=== PATIENT | female | born 1950 | race Caucasian/White ===

== ENCOUNTER 2019-05-18 12:48 | Outpatient (RCR) | payer MEDICARE, SELFPAY | END 2019-05-18 12:55 | disposition home or self-care (01) | LOC: PT 12:48 | PROVIDERS: Visit Provider Thoracic Surgery (Cardiothoracic Vascular Surgery) | DX: Z95.1 Presence of aortocoronary bypass graft (principal) | CPT/HCPCS: 93798 ==

== ENCOUNTER 2021-02-07 12:01 | Observation (INO) | payer MEDICARE, SELFPAY ==
[2021-02-07] VITALS (18 sets, daily range): BP systolic 97–131; BP diastolic 51–93; PULSE 82–141; RESP 15–23; TEMP 36.6–36.9; O2SAT 94–98; BMI 35.2; BMI 29.9
--- NOTE | 2021-02-07 12:03 | ECG_ITS ---
APPROVED REPORT Exam: Resting ECG HR:127 bpm ECG Measurements Heart Rate 127 AXES QRSd 96 QRS -14 QT 334 T 46 QTc 485 Conclusion Atrial fibrillation with rapid ventricular response with premature ventricular or aberrantly conducted complexes Low voltage QRS Incomplete right bundle branch block Nonspecific ST abnormality, probably digitalis effect Abnormal ECG Electronically signed by : Scottie Barnett, 02/09/2021 15:58:55
--- NOTE | 2021-02-07 12:15 | HMH.EDGENADL ---
ED Disposition Clinical Impression: Atrial fibrillation with RVR Syncope Qualifiers: Syncope type: unspecified Qualified Code(s): R55 - Syncope and collapse Disposition: Admitted as Observation Condition on Discharge: Good Referrals: Omar Galvin [Primary Care Provider] - Time of Disposition: 17:00 - Critical Care Critical Care Time: No Attestation: On 02/07/21, the high probability of a clinically significant, sudden or life threatening deterioration of the following system(s) required my full and direct attention, intervention and personal management. The time I documented below is in addition to time spent performing reported procedures but includes the following listed in this critical care notation. Medical Decision Making - Medical Records Medical records reviewed: Yes: I reviewed the patient's medical records. - Smith Inquiry Pt receiving controlled substance: No Vital Signs: 02/07/21 12:02 02/07/21 12:30 02/07/21 13:18 Temperature 98.4 F 98.2 F Temperature Source Oral Oral Pulse Rate 127 H 117 H Pulse Rate [Right] 118 H Respiratory Rate 18 18 18 Blood Pressure 128/74 131/93 H Blood Pressure [Right Arm] 117/69 Blood Pressure Mean [Right Arm] 85 02 Sat by Pulse Oximetry 95 97 97 Oxygen Delivery Method Room Air Room Air 02/07/21 13:45 02/07/21 13:56 02/07/21 14:01 Temperature Temperature Source Pulse Rate 141 H 133 H 128 H Pulse Rate [Right] Respiratory Rate 18 17 Blood Pressure 125/74 125/74 119/86 Blood Pressure [Right Arm] Blood Pressure Mean [Right Arm] 02 Sat by Pulse Oximetry 96 96 94 L Oxygen Delivery Method Room Air 02/07/21 14:27 02/07/21 14:30 02/07/21 15:00 Temperature Temperature Source Pulse Rate 98 H 82 88 Pulse Rate [Right] Respiratory Rate 18 19 20 Blood Pressure 119/71 100/58 L 108/63 L Blood Pressure [Right Arm] Blood Pressure Mean [Right Arm] 02 Sat by Pulse Oximetry 98 96 96 Oxygen Delivery Method Room Air 02/07/21 15:10 02/07/21 15:15 02/07/21 16:00 Temperature Temperature Source Pulse Rate 93 H 96 H 105 H Pulse Rate [Right] Respiratory Rate 16 23 19 Blood Pressure 108/63 L 112/65 97/68 L Blood Pressure [Right Arm] Blood Pressure Mean [Right Arm] 02 Sat by Pulse Oximetry 97 97 98 Oxygen Delivery Method Room Air 02/07/21 16:44 Temperature Temperature Source Pulse Rate 96 H Pulse Rate [Right] Respiratory Rate 15 Blood Pressure 117/78 Blood Pressure [Right Arm] Blood Pressure Mean [Right Arm] 02 Sat by Pulse Oximetry 97 Oxygen Delivery Method - Lab Data Lab results reviewed: Yes: I reviewed the patient's lab results. Lab Results 02/07/21 12:00: WBC 4.2 L, RBC 3.45 L, Hgb 10.5 L, Hct 31.0 L, MCV 89.9, MCH 30.3, MCHC 33.8, RDW 13.6, Plt Count 230, MPV 7.6, Neut % (Auto) 51.7, Lymph % (Auto) 32.2, [place] % (Auto) 8.4, Eos % (Auto) 6.8, Baso % (Auto) 1.1, Neut # (Auto) 2.2, Lymph # (Auto) 1.3, [place] # (Auto) 0.4, Eos # (Auto) 0.3, Baso # (Auto) 0.1 02/07/21 12:00: Sodium 135 L, Potassium 3.6, Chloride 98, Carbon Dioxide 32 H, Anion Gap 8.6, BUN 13, Creatinine 0.60, Estimated Creat Clear 67, Estimated GFR 99, Est GFR ( Amer) 119, Glucose 102 H, Calcium 9.3, Total Bilirubin 0.7, AST 28, ALT 13, Alkaline Phosphatase 106, Troponin I < 0.01, Total Protein 6.8, Albumin 4.1, Globulin 2.7, Albumin/Globulin Ratio 1.5 02/07/21 13:07: Urine Color Yellow, Urine Appearance Clear, Urine pH 5.5, Ur Specific [place] 1.015, Urine Protein Negative, Urine Glucose (UA) Negative, Urine Ketones Negative, Urine Blood Negative, Urine Nitrate Negative, Urine Bilirubin Negative, Urine Urobilinogen 0.2, Ur Leukocyte Esterase Negative, Urine RBC None, Urine WBC None, Ur Squamous Epith Cells Occasional, Urine Bacteria None 02/07/21 15:25: Troponin I < 0.01 02/07/21 15:27: SARS-CoV-2 (PCR) Not detected, Influenza A Untype (PCR) Not detected, Influenza Type B (PCR) Not detected Result diagrams: 02/07/
--- NOTE | 2021-02-07 12:18 | XR_ITS ---
PROCEDURE: XR CHEST PORTABLE CLINICAL HISTORY: Afib with palpations COMPARISON: No exams were available for comparison FINDINGS: There is mild hyperexpansion of lung ferreira. There is slightly accentuated bronchovascular markings in the left suprahilar region which could rib present postinflammatory scarring although a minimal infiltrate or atelectasis is a possibility. I somewhat favor minimal scarring. There is borderline cardiomegaly and there are sternal wire sutures. There is an apparent prosthetic aortic valve in place. There is no pulmonary congestion and there is no pleural fluid. There monitor lines overlying the chest. IMPRESSION: Mild to moderate COPD, no acute cardiopulmonary disease seen Dictated by: Dr. Myke Rodriguez MD 02/07/2021 12:57 Dr. Myke Rodriguez MD in [place] 02/07/2021 12:57
[2021-02-07 12:25] LABS: Basophils # 0.1 K/mm3 (0-0.2); Basophils % 1.1 % (0.1-2.0); Eosinophils # 0.3 K/mm3 (0.0-0.4); Eosinophils % 6.8 % (0.1-12.0); Hemoglobin 10.5 g/dL (12.2-16.2); Lymphocytes # 1.3 K/mm3 (0.7-4.5); Lymphocytes % 32.2 % (10-50); Mean Corpuscular HGB Conc 33.8 g/dL (31.8-35.4); Mean Corpuscular Hemoglobin 30.3 pg (27.0-31.2); Mean Corpuscular Volume 89.9 fl (81-99); Mean Platelet Volume 7.6 fl (7.4-10.4); Monocytes # 0.4 K/mm3 (0.1-1.0); Monocytes % 8.4 % (1.7-9.3); Neutrophils # 2.2 K/mm3 (1.8-7.8); Neutrophils % 51.7 % (37.0-80.0); Platelet Count 230 K/mm3 (142-424); Red Blood Count 3.45 M/mm3 (4.20-5.40); Red Cell Distribution Width 13.6 % (11.5-17.5); White Blood Count 4.2 K/mm3 (4.8-10.8)
[2021-02-07 12:32] LABS: Alanine Aminotransferase 13 U/L (12-78); Albumin Level 4.1 g/dl (3.5-5.0); Albumin/Globulin Ratio 1.5 (1.1-1.8); Alkaline Phosphatase 106 U/L (38-126); Anion Gap 8.6 mEq/L (5-15); Aspartate Amino Transferase 28 U/L (14-36); Bilirubin,Total 0.7 mg/dl (0.2-1.3); Blood Urea Nitrogen 13 mg/dl (7-17); Calcium 9.3 mg/dl (8.4-10.2); Carbon Dioxide 32 mmol/L (22.0-30.0); Chloride 98 mmol/L (98-107); Creatinine Clearance Estimated 67 mL/min (50-200); Estimated Glomerular Filt Rate 99 ml/min (>60); GFR (African American) 119 ML/MIN (>60); Globulin 2.7 g/dL (1.3-3.2); Glucose 102 mg/dl (74-100); Potassium 3.6 mmoL/L (3.5-5.1); Sodium 135 mmol/L (136-145); Total Protein,Serum 6.8 g/dl (6.3-8.2)
[2021-02-07 12:44] LABS: Troponin I < 0.01 ng/ml (0.00-0.034)
--- NOTE | 2021-02-07 12:48 | CT_ITS ---
PROCEDURE: CT HEAD/BRAIN WO CON CLINICAL INDICATION: dizziness and nausea COMPARISON: No exams were available for comparison TECHNIQUE: Axial images obtained. All CT scans at the facility use one or more dose reduction, viz: automated exposure control, ma/kV adjustment per patient size (including targeted exams where dose is matched to indication, i.e. head), or iterative reconstruction technique. FINDINGS: No midline shift, mass effect, intracranial hemorrhage, hydrocephalus, or extra-axial fluid collection is evident. The sylvian fissures and cortical sulci mildly. There are no significant chronic ischemic changes. The calvarium has an unremarkable appearance. No mastoid effusion. The bilateral internal auditory canals appear normal. No sinus air-fluid level. IMPRESSION: No acute intracranial finding, findings of very mild age-appropriate cortical atrophy Dictated by: Dr. Myke Rodriguez MD 02/07/2021 13:59 Dr. Myke Rodriguez MD in [facility] 02/07/2021 13:59
[2021-02-07 13:11] LABS: Microscopic, Urine URINE MICROSCOPIC (MICROSCOPIC)
[2021-02-07 13:13] LABS: Appearance,Urine CLEAR (Clear); Bilirubin,Urine Negative (Negative); Blood, Urine Negative (Negative); Color,Urine YELLOW (Yellow); Glucose,Urine (UA) Negative (Negative); Ketones,Urine Negative (Negative); Leukocyte Esterase,Urine Negative (Negative); Nitrate,Urine Negative (Negative); PH,Urine 5.5 (5.0-8.5); Protein,Urine Negative (Negative); Specific Gravity, Urine 1.015 (1.005-1.030); Urobilinogen,Urine 0.2 EU/dl (0.2)
[2021-02-07 13:30] LABS: Squamous Epithelial Cell,Urine Occasional #/hpf (0-5)
--- NOTE | 2021-02-07 13:31 | PC.NURSE ---
pt to radiology at this time
--- NOTE | 2021-02-07 13:50 | PC.NURSE ---
pt returned from rad
--- NOTE | 2021-02-07 15:19 | ECG_ITS ---
APPROVED REPORT Exam: Resting ECG HR:97 bpm ECG Measurements Heart Rate 97 AXES QRSd 96 QRS -8 QT 374 T 51 QTc 474 Conclusion Atrial fibrillation Low voltage QRS Prolonged QT Abnormal ECG Electronically signed by : Scottie Barnett, 02/08/2021 18:05:16
[2021-02-07 15:31] LABS: Coronavirus 19, PCR Not Detected (NotDetected); Influenza A, PCR Not Detected (NotDetected); Influenza B, PCR Not Detected (NotDetected)
[2021-02-07 16:04] LABS: Troponin I < 0.01 ng/ml (0.00-0.034)
--- NOTE | 2021-02-07 17:05 | PC.NURSE ---
Called cafeteria for food tray for patient per ER physician verbal order
--- NOTE | 2021-02-07 17:16 | HMH.HP ---
*Admission Date: 02/07/21 *Chief complaint: syncope *History of present illness: 70yo F brought to the emergency department by ambulance secondary to multiple syncopal events. Patient reports she is unable to sit up without passing out. This just began this morning. She denies any previous episode. She denies any chest pain, shortness of breath. She denies any nausea or vomiting. She denies any recent illness. She denies any new medications. She endorses some spinning sensation when her eyes are open and she sitting up. No history of vertigo, stroke. (above as per ER physician) The patient was evaluated in the emergency room and found to be in atrial fib with rapid ventricular response. Her HR was in the 150's. She was given IV Cardizem and immediately her heart rate slowed. She states she had one episode of atrial fib when she had open heart surgery back in 2019. She is followed by a allocation analyst at [facility]. Her family physician was Dr. Galvin. He has left his practice and she is now going to be seeing a nurse practitioner. She will be admitted for monitoring on telemetry. [facility] History I have reviewed the patient's past medical history: Yes Medical History: Reports:: Chronic Obstructive Pulmonary Disease (COPD), Coronary Artery Disease, Gastroesophageal Reflux Disease(GERD) *Have you ever received a pneumonia vaccine?: Yes *Have you received a flu vaccine this season?: Yes Laterality Cases: Bilateral: Total Knee Replacement Other Surgeries: Yes: CABG, Cholecystectomy, Colonoscopy, Tubal Ligation Comment: right eye bx, hammer toe, dental - *Social History Smoking Status: Never smoker Alcohol Intake: never *Occupational Status:: retired *Travel in the last 8 weeks: None Family Hx:: Heart Attack, Other (copd) Review of Systems - Constitutional Reports weakness, Denies chills, Denies fever(s) - Eyes Denies blurry vision, Denies double vision - ENT Reports nasal congestion, Denies sore throat - *Cardiovascular Denies chest pain, Denies shortness of breath, Denies rapid, pounding, or irregular heartbeat - *Respiratory Denies chest congestion, Denies cough, Denies shortness of breath - *Gastrointestinal Reports nausea, Denies abdominal pain, Denies loose stools, Denies vomiting - *Genitourinary Denies difficulty urinating, Denies painful urination - *Musculoskeletal Denies joint pain - *Neurologic Reports fainting, Reports dizziness, Reports weakness, Denies headache(s) Meds Home Medications Medication Instructions Recorded Confirmed Type Budesonide 1 inh INHALATION NEEDED PRN 02/07/21 02/07/21 History Furosemide [Lasix 40mg tablet] 40 mg PO DIRECTED 02/07/21 02/07/21 History Ipratropium/Albuterol Sulfate 1 inh INHALATION NEEDED PRN 02/07/21 02/07/21 History [Duoneb 3mL neb] Levocetirizine Dihydrochloride 5 mg PO DAILY 02/07/21 02/07/21 History Montelukast Sodium [Singulair] 5 mg PO DAILY 02/07/21 02/07/21 History Pantoprazole Sodium 40 mg PO DAILY 02/07/21 02/07/21 History Revefenacin [Yupelri] 1 neb INHALATION DAILY 02/07/21 02/07/21 History Trazodone HCl 150 mg PO DAILY 02/07/21 02/07/21 History Venlafaxine HCl [Venlafaxine HCl 150 mg PO DAILY 02/07/21 02/07/21 History ER] Allergies Allergy/AdvReac Type Severity Reaction Status Date / Time No Known Allergies Allergy Verified 02/07/21 12:18 Exam Vital signs and Labs for Last 24 Hours: Temp Pulse Resp BP Pulse Ox 98.2 F 96 H 15 117/78 97 02/07/21 13:18 02/07/21 16:44 02/07/21 16:44 02/07/21 16:44 02/07/21 16:44 Laboratory Results - last 24 hr 02/07/21 12:00: WBC 4.2 L, RBC 3.45 L, Hgb 10.5 L, Hct 31.0 L, MCV 89.9, MCH 30.3, MCHC 33.8, RDW 13.6, Plt Count 230, MPV 7.6, Neut % (Auto) 51.7, Lymph % (Auto) 32.2, [place] % (Auto) 8.4, Eos % (Auto) 6.8, Baso % (Auto) 1.1, Neut # (Auto) 2.2, Lymph # (Auto) 1.3, [place] # (Auto) 0.4, Eos # (Auto) 0.3, Baso # (Auto) 0.1 02/07/21 12:00: Sodium 135 L, [place]
--- NOTE | 2021-02-07 18:13 | PC.NURSE ---
ATTEMPTED TO CALL REPORT TO 2ND FLOOR ABOUT PATIENT TWICE WITHOUT PHONE CALL BACK. 2ND FLOOR SPICE MIXER MADE AWARE TO HAVE FLOOR NURSE CALL BACK FOR REPORT
--- NOTE | 2021-02-07 18:45 | PC.NURSE ---
Contacted Miah for consult on this pt.
[2021-02-07 19:18] LABS: Troponin I < 0.01 ng/ml (0.00-0.034)
--- NOTE | 2021-02-07 20:18 | HMH.ACPN2 ---
Internal Medicine - PN: Subj *Date: 02/07/21 *Time: 20:18 Interval history: 70-year-old white female with prosthetic aortic valve presented with atrial fibrillation with rapid ventricular response. She responded in the emergency room to IV diltiazem. She states that there have been problems with her aortic valve. She also states that she has been under evaluation for hyperthyroidism. She has had some episodes of syncope. Exam Vital signs and Labs for Last 24 Hours: Temp Pulse Resp BP Pulse Ox 97.8 F 113 H 16 108/51 L 94 L 02/07/21 18:20 02/07/21 18:20 02/07/21 18:20 02/07/21 18:20 02/07/21 18:10 Laboratory Results - last 24 hr 02/07/21 12:00: WBC 4.2 L, RBC 3.45 L, Hgb 10.5 L, Hct 31.0 L, MCV 89.9, MCH 30.3, MCHC 33.8, RDW 13.6, Plt Count 230, MPV 7.6, Neut % (Auto) 51.7, Lymph % (Auto) 32.2, [place] % (Auto) 8.4, Eos % (Auto) 6.8, Baso % (Auto) 1.1, Neut # (Auto) 2.2, Lymph # (Auto) 1.3, [place] # (Auto) 0.4, Eos # (Auto) 0.3, Baso # (Auto) 0.1 02/07/21 12:00: Sodium 135 L, Potassium 3.6, Chloride 98, Carbon Dioxide 32 H, Anion Gap 8.6, BUN 13, Creatinine 0.60, Estimated Creat Clear 67, Estimated GFR 99, Est GFR ( Amer) 119, Glucose 102 H, Calcium 9.3, Total Bilirubin 0.7, AST 28, ALT 13, Alkaline Phosphatase 106, Troponin I < 0.01, Total Protein 6.8, Albumin 4.1, Globulin 2.7, Albumin/Globulin Ratio 1.5 02/07/21 13:07: Urine Color Yellow, Urine Appearance Clear, Urine pH 5.5, Ur Specific [place] 1.015, Urine Protein Negative, Urine Glucose (UA) Negative, Urine Ketones Negative, Urine Blood Negative, Urine Nitrate Negative, Urine Bilirubin Negative, Urine Urobilinogen 0.2, Ur Leukocyte Esterase Negative, Urine RBC None, Urine WBC None, Ur Squamous Epith Cells Occasional, Urine Bacteria None 02/07/21 15:25: Troponin I < 0.01 02/07/21 15:27: SARS-CoV-2 (PCR) Not detected, Influenza A Untype (PCR) Not detected, Influenza Type B (PCR) Not detected 02/07/21 18:15: Troponin I < 0.01 I & O for Last 24 hours: Intake & Output 02/05/21 02/06/21 02/07/21 02/08/21 11:59 11:59 11:59 11:59 Output Total 1000 / 1000 Balance -1000 / -1000 Weight 180 lb - Constitutional mild distress (She seems anxious and short of breath.) - *Routine HEENT Exam Head: Present: normocephalic Eye: Present: PERRL ENT: Present: mucous membranes moist - *Routine Neck Exam Present: JVD (Some) - Routine Chest/Breast/Axilla Exam Chest wall: Absent: tenderness Breast: Present: scars - *Routine Respiratory Exam Present: decreased breath sounds, wheezes - *Routine Cardiovascular Exam Present: irregular rhythm (100) - *Routine Abdominal Exam Present: soft. Absent: tenderness - *Routine Extremities Exam Absent: edema - *Routine Neurological Exam Present: alert (Pleasant but somewhat anxious.) Assessment and Plan (1) Atrial fibrillation with rapid ventricular response Status: Acute Category: Medical Code(s): I48.91 - Unspecified atrial fibrillation (2) Aortic valve prosthesis present Status: Acute Category: Surgical Code(s): Z95.2 - Presence of prosthetic heart valve (3) Syncope Status: Acute Category: Medical Code(s): R55 - Syncope and collapse (4) Thyroid disease Status: Acute Category: Medical Code(s): E07.9 - Disorder of thyroid, unspecified (5) COPD (chronic obstructive pulmonary disease) Status: Chronic Category: Medical Code(s): J44.9 - Chronic obstructive pulmonary disease, unspecified (6) Coronary artery disease Status: Chronic Category: Medical Code(s): I25.10 - Atherosclerotic heart disease of [place] coronary artery without angina pectoris - Assessment and plan all Dx Assessment and Plan for all problems:: Oxazepam 10 mg 3 times daily, coroner technician, observe for heart failure, TSH ordered, echocardiogram ordered, potassium 10 mEq 3 times daily
[2021-02-07 20:34] LABS: Thyroid Stimulating Hormone < 0.02 uIU/mL (0.465-4.68)
[2021-02-08] VITALS (17 sets, daily range): BP systolic 102–140; BP diastolic 54–89; PULSE 70–130; RESP 13–30; TEMP 36.6–36.8; O2SAT 90–98; BMI 30.2
--- NOTE | 2021-02-08 05:04 | PC.NURSE ---
patient has shown no s/s of acute distress noted this shift. Still tachycardic. Call light within reach, bed at lowest level for safety, will continue to monitor.
--- NOTE | 2021-02-08 06:15 | PC.NURSE ---
Josefina CAZARES NOTIFIED OF CONSULT.
[2021-02-08 06:36] LABS: Basophils % 0.7 % (0.1-2.0); Eosinophils # 0.4 K/mm3 (0.0-0.4); Eosinophils % 6.6 % (0.1-12.0); Hematocrit 33.1 % (37.0-47.0); Hemoglobin 10.9 g/dL (12.2-16.2); Lymphocytes # 2.8 K/mm3 (0.7-4.5); Lymphocytes % 41.5 % (10-50); Mean Corpuscular HGB Conc 32.9 g/dL (31.8-35.4); Mean Corpuscular Hemoglobin 30.2 pg (27.0-31.2); Mean Corpuscular Volume 91.9 fl (81-99); Mean Platelet Volume 7.6 fl (7.4-10.4); Monocytes # 0.5 K/mm3 (0.1-1.0); Neutrophils # 2.9 K/mm3 (1.8-7.8); Neutrophils % 44.2 % (37.0-80.0); Platelet Count 236 K/mm3 (142-424); Red Cell Distribution Width 13.5 % (11.5-17.5); White Blood Count 6.6 K/mm3 (4.8-10.8)
[2021-02-08 06:38] LABS: Chloride 102 mmol/L (98-107); Potassium 4.2 mmoL/L (3.5-5.1); Sodium 140 mmol/L (136-145)
[2021-02-08 06:40] LABS: Blood Urea Nitrogen 10 mg/dl (7-17); Creatinine Clearance Estimated 67 mL/min (50-200); Estimated Glomerular Filt Rate 99 ml/min (>60); GFR (African American) 119 ML/MIN (>60)
[2021-02-08 06:41] LABS: Anion Gap 10.2 mEq/L (5-15); Calcium 9.6 mg/dl (8.4-10.2); Carbon Dioxide 32 mmol/L (22.0-30.0); Glucose 98 mg/dl (74-100)
--- NOTE | 2021-02-08 07:25 | P.PN_ITS ---
Internal Medicine - PN: Subj *Date: 02/08/21 *Time: 07:25 Interval history: Remains in A. fib with HR>100. TSH<0.02 indicating hyperthyroidism. Exam Vital signs and Labs for Last 24 Hours: Temp Pulse Resp BP Pulse Ox 97.9 F 80 18 119/74 96 02/08/21 00:00 02/08/21 04:00 02/08/21 00:00 02/08/21 00:00 02/08/21 00:00 Laboratory Results - last 24 hr 02/07/21 12:00: WBC 4.2 L, RBC 3.45 L, Hgb 10.5 L, Hct 31.0 L, MCV 89.9, MCH 30.3, MCHC 33.8, RDW 13.6, Plt Count 230, MPV 7.6, Neut % (Auto) 51.7, Lymph % (Auto) 32.2, [place] % (Auto) 8.4, Eos % (Auto) 6.8, Baso % (Auto) 1.1, Neut # (Auto) 2.2, Lymph # (Auto) 1.3, [place] # (Auto) 0.4, Eos # (Auto) 0.3, Baso # (Auto) 0.1 02/07/21 12:00: Sodium 135 L, Potassium 3.6, Chloride 98, Carbon Dioxide 32 H, Anion Gap 8.6, BUN 13, Creatinine 0.60, Estimated Creat Clear 67, Estimated GFR 99, Est GFR ( Amer) 119, Glucose 102 H, Calcium 9.3, Total Bilirubin 0.7, AST 28, ALT 13, Alkaline Phosphatase 106, Troponin I < 0.01, Total Protein 6.8, Albumin 4.1, Globulin 2.7, Albumin/Globulin Ratio 1.5 02/07/21 13:07: Urine Color Yellow, Urine Appearance Clear, Urine pH 5.5, Ur Specific [place] 1.015, Urine Protein Negative, Urine Glucose (UA) Negative, Urine Ketones Negative, Urine Blood Negative, Urine Nitrate Negative, Urine Bilirubin Negative, Urine Urobilinogen 0.2, Ur Leukocyte Esterase Negative, Urine RBC None, Urine WBC None, Ur Squamous Epith Cells Occasional, Urine Bact eria None 02/07/21 15:25: Troponin I < 0.01 02/07/21 15:25: TSH < 0.02 L 02/07/21 15:27: SARS-CoV-2 (PCR) Not detected, Influenza A Untype (PCR) Not d etected, Influenza Type B (PCR) Not detected 02/07/21 18:15: Troponin I < 0.01 02/08/21 06:10: WBC 6.6 D, RBC 3.60 L, Hgb 10.9 L, Hct 33.1 L, MCV 91.9, MCH 30.2, MCHC 32.9, RDW 13.5, Plt Count 236, MPV 7.6, Neut % (Auto) 44.2, Lymph % (Auto) 41.5, [place] % (Auto) 7.0, Eos % (Auto) 6.6, Baso % (Auto) 0.7, Neut # (Auto) 2.9, Lymph # (Auto) 2.8, [place] # (Auto) 0.5, Eos # (Auto) 0.4, Baso # (Auto) 0.0 02/08/21 06:10: Sodium 140, Potassium 4.2, Chloride 102, Carbon Dioxide 32 H, Anion Gap 10.2, BUN 10, Creatinine 0.60, Estimated Creat Clear 67, Estimated GFR 99, Est GFR ( Amer) 119, Glucose 98, Calcium 9.6 I & O for Last 24 hours: Intake & Output 02/05/21 02/06/21 02/07/21 02/08/21 11:59 11:59 11:59 11:59 Output Total 1500 / 1500 Balance -1500 / -1500 Weight 181 lb 2 oz Assessment and Plan (1) Atrial fibrillation with rapid ventricular response Status: Acute Category: Medical Code(s): I48.91 - Unspecified atrial fibrillation (2) Aortic valve prosthesis present Status: Acute Category: Surgical Code(s): Z95.2 - Presence of prosthetic heart valve (3) Syncope Status: Acute Category: Medical Code(s): R55 - Syncope and collapse (4) Hyperthyroidism Status: Acute Category: Medical Code(s): E05.90 - Thyrotoxicosis, unspecified without thyrotoxic crisis or storm (5) COPD (chronic obstructive pulmonary disease) Status: Chronic Category: Medical Code(s): J44.9 - Chronic obstructive pulmonary disease, unspecified (6) Coronary artery disease Status: Chronic Category: Medical Code(s): I25.10 - Atherosclerotic heart disease of [place] coronary artery without angina pectoris - Assessment and plan all Dx Assessment and Plan for all problems:: Thyroid autoantibodies test. Methimazole 5mg daily.
--- NOTE | 2021-02-08 07:31 | US_ITS ---
PROCEDURE: US THYROID CLINICAL INDICATION: hyperthyroidism COMPARISON: No exams were available for comparison FINDINGS: Right lobe: 2.3cm x 4.1cm x 2.1cm Left lobe: 2.1cm x 3.7cm x 1.9cm Isthmus: Thickened at 7 mm Additional findings: There is diffuse heterogeneous echogenicity of both lobes. There is a small 3 mm cyst in the upper pole on the. In the mid polar region on the left there is a a mostly solid nodule 9 x 6 mm with a small central cystic area wider than tall. No obvious calcifications. Well-circumscribed isoechoic to slightly hypoechoic. T rads level 3 less than 2.5 cm IMPRESSION: 9 x 6 mm T rads level 3 nodule on the left. Suggest 12 month follow-up Diffuse heterogeneous echogenicity of the thyroid gland. Dictated by: Gerald Glover MD 02/09/2021 04:49 Gerald Glover MD in [place] 02/09/2021 04:49
--- NOTE | 2021-02-08 08:00 | PC.NURSE ---
Instructed pt that home meds were needed, she stated she would have her bring them in.
--- NOTE | 2021-02-08 08:00 | CA_ITS ---
APPROVED REPORT EXAM: Comprehensive 2D, Doppler, and color-flow Echocardiogram Rotary Derrick Operator: Haylie Godoy CRT Ht: 5 ft 5 in Wt: 180lbs BSA: 1.89 BP: 117/78 mmHg Indications: Atrial Fibrillation, Syncope, CABG 2019, GERD, AVR replaced 2019 bovine valve, pt states valve is too small and needs surgically replaced 2D Dimensions LVOT 1.52 cm (M/F) 1.5-2.5 LA Volume 43.80 mL LA Volume Index 23.20 mL/m2 (M/F) 16-34 M-Mode Dimensions RVDd 2.57 cm (0.9-2.6) LA Diam 5.21 cm (1.9-4.0) LVDd 5.03 cm (3.5-5.7) Ao Diam 3.51 cm (2.0-3.7) LVDs 3.64 cm (3.5-5.7) IVSd 1.25 cm (0.6-1.1) PWd 0.82 cm (0.6-1.1) EF (Teich) 53.40% FS 27.60% EDV (Teich) 119.90 mL TAPSE 1.45 (<1.7) ESV (Teich) 55.90 mL LV Diastology E Decel Time 150.00 (160-240 msec) E/A Ratio 4.06 Aortic Valve LVOT Max 350.00 (70-110 cm/s) LVOT VTI 59.20 cm AoV Peak Rahul. 293.00 (50-130 cm/s) AO Peak GR. 35.40 mmHg AO Mean GR. 16.40 (<5 mmHg) AO VTI 45.29 (18-25 cm) DEEAP (VTI) 2.37 (2.5-4.5 cm2) Mitral Valve MV E Max Rahul. 128.00 (40-130 cm/s) MV A Velocity 31.00 (40-130 cm/s) E/A Ratio 4.06 MV Decel. Time 150.00 (160-240 ms) MV PHT 44.00 ms Pulmonary Valve PV Peak Velocity 145.00 (50-150 cm/s) Tricuspid Valve TR P. Velocity 286.00 cm/s RAP Estimate 10.00 mmHg RVSP 42.70 mmHg Left Ventricle Difficult study, left atrium is moderately enlarged, left ventricle is normal size, visually estimated ejection fraction of 55% with no regional wall motion abnormality, there is abnormal septal motion. Diastolic parameters are inconclusive. Right Ventricle Right atrium is moderately enlarged, right ventricle is mildly dilated normal contractility. Aortic Valve There is bioprosthetic valve noted in the aortic position, leaflets are mobile, the maximum aortic outflow velocity is 3.4 m/s, resulting in a mean gradient across valve is 24 mmHg. Valve area is not accurately calculated, there is no aortic insufficiency. Mitral Valve Mitral valve leaflets are minimally thickened, there is moderate mitral regurgitation. Tricuspid Valve Tricuspid valve grossly normal, there is moderate tricuspid regurgitation, calculated right ventricular systolic pressure is 42 mmHg. Pulmonic Valve Pulmonic valve is poorly visualized. Great Vessels Aortic root is normal size, ascending aorta is mildly enlarged measuring 3.8 cm. Inferior vena cava is normal size with normal inspiratory collapse. Pericardium No significant pericardial effusion noted. Conclusion 1. Biatrial enlargement, normal left ventricular size, mild concentric left ventricular hypertrophy, visually estimated ejection fraction 55%, there is abnormal septal motion. Diastolic parameters are inconclusive. 2. Mildly enlarged right ventricle with normal contractility. 3. Bioprosthetic aortic valve with mean gradient across valve is 24 mmHg, there is no aortic insufficiency. 4. Moderate mitral and tricuspid regurgitation. Calculated right ventricular systolic pressure 42 mmHg 5. No significant pericardial effusion noted, inferior vena cava is normal size with normal inspiratory collapse. Electronically signed by : Akbar Dougherty, 02/08/2021 15:50:46
--- NOTE | 2021-02-08 08:04 | P.CONPHA_ITS ---
[facility] Pharmacy VTE Monitoring - Patient Demographics Admission date: 02/07/21 Report Date: 02/08/21 Time: 08:04 Allergies/Adverse Reactions: Patient Allergies No Known Allergies Allergy (Verified 02/07/21 12:18) Height: 1.65 m Weight: 82.157 kg Patient Problems: Current Active Problems Hyperthyroidism (Acute) Aortic valve prosthesis present (Acute) Atrial fibrillation with rapid ventricular response (Acute) Coronary artery disease (Chronic) COPD (chronic obstructive pulmonary disease) (Chronic) Syncope (Acute) - VTE Risk Labs: VTE Related Lab Results Hgb 10.9 g/dL (12.2-16.2) L 02/08/21 06:10 Hct 33.1 % (37.0-47.0) L 02/08/21 06:10 Plt Count 236 K/mm3 (142-424) 02/08/21 06:10 BUN 10 mg/dl (7-17) 02/08/21 06:10 Creatinine 0.60 mg/dl (0.52-1.04) 02/08/21 06:10 Estimated Creat Clear 67 mL/min (50-200) 02/08/21 06:10 Was VTE Risk Assessment Performed: Yes VTE Score: 3 VTE Risk Level: Low Risk - Prophylaxis VTE Prophylaxis Ordered?: Yes Types of VTE Prophylaxis: IPCS Thigh High, Pharmacological Location of Applied Device: Bilateral Lower Extremeties Pharmacologic Type: Other (XARELTO)
[2021-02-08 08:18] LABS: Triiodothryronine (T3) Uptake 42 % (23.5-40.5)
--- NOTE | 2021-02-08 08:18 | CT_ITS ---
PROCEDURE INFORMATION: Exam: CTA Chest With Contrast Exam date and time: 02/08/2021 8:18 AM Age: 70 years old Clinical indication: Shortness of breath; Prior surgery; Additional info: juan BANG TECHNIQUE: Imaging protocol: Computed tomographic angiography of the chest with contrast. 3D rendering (Not supervised by radiologist): MIP and/or 3D reconstructed images were created by the technologist. Radiation optimization: All CT scans at this facility use at least one of these dose optimization techniques: automated exposure control; mA and/or kV adjustment per patient size (includes targeted exams where dose is matched to clinical indication); or iterative reconstruction. Contrast material: ISOVUE 370; Contrast volume: 70 ml; Contrast route: INTRAVENOUS (IV); COMPARISON: CR XR CHEST PORTABLE 02/07/2021 12:34 PM FINDINGS: Pulmonary arteries: Normal. No pulmonary emboli. Aorta: Unremarkable. No aortic aneurysm. No aortic dissection. Lungs: There is biapical fibrosis. Pleural spaces: Unremarkable. No pneumothorax. No pleural effusion. Heart: Aortic valve prosthesis. Mediastinal space: There is a hiatal hernia. Lymph nodes: Unremarkable. No enlarged lymph nodes. Gallbladder and bile ducts: There has been a cholecystectomy. There is biliary ductal dilatation. Asymptomatic bile duct dilatation is considered normal after cholecystectomy. Pancreas: There is diffuse atrophy of the pancreatic parenchyma. Bones/joints: There are sternal wires consistent with previous sternotomy incision. Degenerative changes of the spine. Soft tissues: Unremarkable. IMPRESSION: No acute findings.
[2021-02-08 08:19] LABS: Free Thyroxine Index 5.7 ug/dL (5.93-13.13); T4 (Thyroxine) 13.6 ug/dl (5.53-11.0)
--- NOTE | 2021-02-08 08:25 | HMH.CNCARD ---
History of Present Illness Consult date: 02/08/21 Requesting physician: Kailyn Sheikh Consult reason: atrial fibrillation, shortness of breath Chief complaint: SOA Additional Medical History:: 1. Aortic valve disease A. Aortic valve replacement, 03/29/2019, Dr. Hardy, [facility]. B. Normal coronaries per records at time of AVR surgery. 2. COPD in a non-smoker 3. History of recurrent major depressive disorder 4. Hypothyroidism 5. Obstructive sleep apnea, reportedly mild 6. Anxiety 7. Hyperlipidemia 8. History of thrombocytosis 9. Paroxysmal atrial fibrillation 10. History of asthma 11 history of GERD 12. History of fibrocystic breast changes, bilaterally 13. History of hepatitis A History of present illness: 70yo F brought to the emergency department by ambulance secondary to multiple syncopal events. Patient reports she is unable to sit up without passing out. This just began this morning. She denies any previous episode. She denies any chest pain, shortness of breath. She denies any nausea or vomiting. She denies any recent illness. She denies any new medications. She endorses some spinning sensation when her eyes are open and she sitting up. No history of vertigo, stroke. (above as per ER physician) The patient was evaluated in the emergency room and found to be in atrial fib with rapid ventricular response. Her HR was in the 150's. She was given IV Cardizem and immediately her heart rate slowed. She states she had one episode of atrial fib when she had open heart surgery back in 2018. She is followed by a pole framer at [facility]. Her family physician was Dr. Galvin. He has left his practice and she is now going to be seeing a nurse practitioner. She will be admitted for monitoring on telemetry. The above per Chela Winter PA-C for Dr. Sheikh The above confirmed by patient. She does relate that her aortic valve reportedly was undersized at the time of implant and will need replacing. She has been followed by her pole framer, Dr. Colbert, and had been stable per note from 07/2020 until yesterday morning. Aortic valve replacement was performed in 03/[address] Hardy at [facility]. EKG shows atrial fibrillation with rapid ventricular response. No acute ST segment changes noted. Troponins have returned normal x3 overnight. Renal functions are normal. Chest x-ray shows COPD with no evidence of heart failure. [facility] History Medical History: Reports:: Congestive Heart Failure, Chronic Obstructive Pulmonary Disease (COPD), Coronary Artery Disease, Gastroesophageal Reflux Disease(GERD) Denies:: Cancer, Diabetes Mellitus Type 1, Diabetes Mellitus Type 2, MRSA *Have you ever received a pneumonia vaccine?: Yes *Have you received a flu vaccine this season?: Yes Laterality Cases: Bilateral: Total Knee Replacement Other Surgeries: Yes: CABG, Cardiac Catheterization, Cholecystectomy, Colonoscopy, Tubal Ligation Amputation: No Fractures: No - *Social History Last grade of school completed: Advanced degree Smoking Status: Never smoker Alcohol Intake: never *Occupational Status:: retired Housing: house Household Members: spouse *Travel in the last 8 weeks: None Family Hx:: Heart Attack Meds Home Medications Medication Instructions Recorded Confirmed Type Aspirin [Aspirin 81mg chewable 81 mg PO HS 02/07/21 02/07/21 History tab] Budesonide 1 inh INHALATION DAILY 02/07/21 02/07/21 History Furosemide [Lasix 40mg tablet] 40 mg PO Q48H 02/07/21 02/08/21 History Ipratropium/Albuterol Sulfate 1 inh INHALATION QID 02/07/21 02/08/21 History [Duoneb 3mL neb] Levocetirizine Dihydrochloride 5 mg PO HS 02/07/21 02/07/21 History Montelukast Sodium [Singulair] 5 mg PO HS 02/07/21 02/07/21 History Pantoprazole Sodium 40 mg PO DAILY 02/07/21 02/07/21 History Revefenacin [Yupelri] 1 neb INHALATION DAILY 02/07/21 02/07/21 History Trazodone HCl 150 mg PO HS 02/07/21 02/07/21
[2021-02-08 08:32] LABS: Thyroid Stimulating Hormone < 0.02 uIU/mL (0.465-4.68)
--- NOTE | 2021-02-08 08:42 | HMH.ACPN2 ---
Internal Medicine - PN: Subj *Date: 02/08/21 *Time: 08:43 Interval history: Patient states she was eating breakfast this morning and got profoundly short of breath. If she sits up, she feels like she is going to pass out. She states she normally takes breathing treatments scheduled at home and has not had any since yesterday. Serafin Bedoya saw the patient as well. She does relate having a aortic valve that will need has been replaced and will need to be replaced again due to the fact that it was too small in size. Cardiology has ordered a CTA to rule out a PE and Dr. Dougherty is going to look at her echo. Exam Vital signs and Labs for Last 24 Hours: Temp Pulse Resp BP Pulse Ox 97.9 F 93 H 22 118/84 95 02/08/21 08:00 02/08/21 08:20 02/08/21 08:00 02/08/21 08:00 02/08/21 08:20 Laboratory Results - last 24 hr 02/07/21 12:00: WBC 4.2 L, RBC 3.45 L, Hgb 10.5 L, Hct 31.0 L, MCV 89.9, MCH 30.3, MCHC 33.8, RDW 13.6, Plt Count 230, MPV 7.6, Neut % (Auto) 51.7, Lymph % (Auto) 32.2, Dickenson % (Auto) 8.4, Eos % (Auto) 6.8, Baso % (Auto) 1.1, Neut # (Auto) 2.2, Lymph # (Auto) 1.3, Dickenson # (Auto) 0.4, Eos # (Auto) 0.3, Baso # (Auto) 0.1 02/07/21 12:00: Sodium 135 L, Potassium 3.6, Chloride 98, Carbon Dioxide 32 H, Anion Gap 8.6, BUN 13, Creatinine 0.60, Estimated Creat Clear 67, Estimated GFR 99, Est GFR ( Amer) 119, Glucose 102 H, Calcium 9.3, Total Bilirubin 0.7, AST 28, ALT 13, Alkaline Phosphatase 106, Troponin I < 0.01, Total Protein 6.8, Albumin 4.1, Globulin 2.7, Albumin/Globulin Ratio 1.5 02/07/21 13:07: Urine Color Yellow, Urine Appearance Clear, Urine pH 5.5, Ur Specific [place] 1.015, Urine Protein Negative, Urine Glucose (UA) Negative, Urine Ketones Negative, Urine Blood Negative, Urine Nitrate Negative, Urine Bilirubin Negative, Urine Urobilinogen 0.2, Ur Leukocyte Esterase Negative, Urine RBC None, Urine WBC None, Ur Squamous Epith Cells Occasional, Urine Bacteria None 02/07/21 15:25: Troponin I < 0.01 02/07/21 15:25: TSH < 0.02 L 02/07/21 15:27: SARS-CoV-2 (PCR) Not detected, Influenza A Untype (PCR) Not detected, Influenza Type B (PCR) Not detected 02/07/21 18:15: Troponin I < 0.01 02/08/21 06:10: WBC 6.6 D, RBC 3.60 L, Hgb 10.9 L, Hct 33.1 L, MCV 91.9, MCH 30.2, MCHC 32.9, RDW 13.5, Plt Count 236, MPV 7.6, Neut % (Auto) 44.2, Lymph % (Auto) 41.5, Dickenson % (Auto) 7.0, Eos % (Auto) 6.6, Baso % (Auto) 0.7, Neut # (Auto) 2.9, Lymph # (Auto) 2.8, Dickenson # (Auto) 0.5, Eos # (Auto) 0.4, Baso # (Auto) 0.0 02/08/21 06:10: Sodium 140, Potassium 4.2, Chloride 102, Carbon Dioxide 32 H, Anion Gap 10.2, BUN 10, Creatinine 0.60, Estimated Creat Clear 67, Estimated GFR 99, Est GFR ( Amer) 119, Glucose 98, Calcium 9.6 02/08/21 06:10: TSH < 0.02 L, Free T4 Index 5.7 L, Thyroxine (T4) 13.6 H, T3 Uptake 42 H I & O for Last 24 hours: Intake & Output 02/05/21 02/06/21 02/07/21 02/08/21 11:59 11:59 11:59 11:59 Output Total 1500 / 1500 Balance -1500 / -1500 Weight 181 lb 2 oz - Constitutional Comments: Dyspneic - *Routine Respiratory Exam Present: decreased breath sounds, wheezes - *Routine Cardiovascular Exam Present: irregularly irregular (rate 114) - *Routine Abdominal Exam Present: soft, normoactive bowel sounds. Absent: tenderness - *Routine Extremities Exam Absent: cyanosis, clubbing, edema - *Routine Skin Exam Present: warm. Absent: rash - *Routine Neurological Exam Present: alert, oriented X3 Assessment and Plan (1) Atrial fibrillation with rapid ventricular response Status: Acute Category: Medical Code(s): I48.91 - Unspecified atrial fibrillation (2) Aortic valve prosthesis present Status: Acute Category: Surgical Code(s): Z95.2 - Presence of prosthetic heart valve (3) Syncope Status: Acute Category: Medical Code(s): R55 - Syncope and collapse (4) Hyperthyroidism Status: Acute Category: Medical Code(s): E05.90 - Thyrotoxicosis, unspecified without thyrotoxic cr
[2021-02-08 08:59] LABS: NT Pro Brain Natriuretic Pep. 2160 pg/mL (0-125)
--- NOTE | 2021-02-08 09:30 | PC.NURSE ---
Morning meds held per JONATHAN Larson (except for lovenox) until after chest cta;
--- NOTE | 2021-02-08 11:40 | PC.NURSE ---
Per ROLANDO/JONATHAN Larson: Labs: free t4 and free t3, may add methimazole depending on results: 1L NS @ 100 mls/hr then decrease to 75 mls/hr, change duonebs to xopenex tid, dc lasix, dc K+, all read back and verified; Serafin to discuss w/pharmacy about starting an esmolol gtt. If so, transfer to stepdown
[2021-02-08 12:02] LABS: Free T4 (Free Thyroxine) 2.55 ng/dl (0.78-2.19)
--- NOTE | 2021-02-08 12:32 | PC.NURSE ---
Humberto held per JONATHAN Larson
--- NOTE | 2021-02-08 12:49 | PC.NURSE ---
Esmolol gtt started @ 50mcg/kg/min (24.6mL/hr). Afib on tele with HR 120s.
--- NOTE | 2021-02-08 14:00 | PC.NURSE ---
Esmolol gtt increased to 75mcg/kg/min. HR 120s. BP 133/69
--- NOTE | 2021-02-08 15:00 | PC.NURSE ---
Esmolol gtt increased to 100mcg/kg/min. Afib sustains 110-120s. Collaborated with pharmacy (Kailyn Garcia) on Esmolol gtt policy as there is currently no sheet in the ICU/SD book. He brought a copy of the protocol that pharmacy goes by. Sheet placed in gtt book.
--- NOTE | 2021-02-08 16:21 | PC.NURSE ---
O2 sat on 2L mid-high 80s. Increased liter flow to 3L. O2 sat now low 90s. Pt states that she has these spells and wears 2L NC @ home.
--- NOTE | 2021-02-08 16:29 | PC.NURSE ---
received call from Kailyn CASTILLO and Dr. MARSHALL. Order received to tritrate Esmolol gtt for goal HR < 100. Dr. MARSHALL ordered to increase Esmolol gtt to 200mcg/kg/min now. Pt is vomiting. Received new order for Zofran 4mg IV Q6 hrs prn.
--- NOTE | 2021-02-08 16:35 | PC.NURSE ---
pt vomited Oxapem capsule in emesis bag. It is visual in the bag. Threw emesis bag in the dirty linen room in the appropriate container. Obtained 2nd Oxapem from [facility] and administered to her.
--- NOTE | 2021-02-08 19:01 | PC.NURSE ---
pt unable to finish neb tx. she stated it makes her nauseated
[2021-02-09] VITALS (16 sets, daily range): BP systolic 97–149; BP diastolic 52–80; PULSE 82–141; RESP 12–32; TEMP 36.6–36.9; O2SAT 91–100; BMI 30.2
--- NOTE | 2021-02-09 00:40 | PC.NURSE ---
shift summary 1954 patient began complaining of nausea and vomited once after receiving breathing treatment. dr. fernandez paged at 1950 for additional nausea medication. patient anxious with bilateral lower extremity hyperactivity. received order for phenergan 12.5 mg ivp with adequate results. new iv started in right forarm x 1 attempt. patients anxiety and restlessness increased, calling out stating i can't breath . o2 sats mid 90s, rr 30, heart rate increased to one teens. esmolol drip currently at 200mcq/kg/hr. dr. fernandez notified of patient condition as well as pink urine in catheter. new order received for 0.5 mg ativan ivp. patient calmed slightly, sleeping approximately 45 min however heart rate remained up to 130s, dr. barger notified of heart rate, blood pressure, anxiet and esmolol dose. new order given to discontinue esmolol drip, given 10 mg 1v cardizem push and start on cardizem drip, titrate for heart rate below 100. after cardizem bolus and drip started at 5 mg/hr patients heart rate decreased to afib with rate 80s-90s. new iv in right forearm now infiltrated, area red and warm. iv removed and warm compress applied. 2354 within an hour patients anxiety,restlessness again has increased greater than previously. dr. fernandez notified again of patient condition as well as heart rate up to 130s with anxiety. new order received for additional 1 mg ivp ativan. order carried out. 0015 patient heart rate up to 140s with anxiety, cardizem drip increased to 10 mg/hr. 0100 pateitn currently with heart rate 90s to low 100s, resting with eyes closed, patient will wake momentarily and patient will cry out and legs will become hyperactive again. heart rate will again jump into the 120s patient has denied pain throughout shift, has remained alert and oriented x 4, no facial droop or extremity weakness noted. alvarez catheter continues draining red urine
--- NOTE | 2021-02-09 04:39 | PC.NURSE ---
patient awoke at 0230 calm and appropriate, legs continue to be hyperactive but less than previously. patient ate a piece of cake and went bake to sleep. currently patient resting with heart rate in the 80s on 10 mg cardizem.
--- NOTE | 2021-02-09 08:37 | HMH.ACPN2 ---
Internal Medicine - PN: Subj *Date: 02/09/21 *Time: 08:37 Interval history: Patient states she is feeling a little bit better today. She denies any pain and her shortness of breath has improved from yesterday. She was able to rest better last night. She ate most of her breakfast this morning. Exam Vital signs and Labs for Last 24 Hours: Temp Pulse Resp BP Pulse Ox 98.4 F 94 H 12 108/71 L 100 02/09/21 04:00 02/09/21 06:00 02/09/21 06:00 02/09/21 06:00 02/09/21 06:00 Laboratory Results - last 24 hr 02/08/21 06:10: TSH < 0.02 L 02/08/21 06:10: NT-Pro-B Natriuret Pep 2160 H 02/08/21 06:10: Free T4 2.55 H I & O for Last 24 hours: Intake & Output 02/06/21 02/07/21 02/08/21 02/09/21 11:59 11:59 11:59 11:59 Intake Total 480 / 480 2359 / 2359 Output Total 1800 / 1800 850 / 850 Balance -1320 / -1320 1509 / 1509 Weight 181 lb 2 oz 181 lb 2.003 oz - Constitutional no acute distress - *Routine Respiratory Exam Present: decreased breath sounds, wheezes - *Routine Cardiovascular Exam Present: irregularly irregular - *Routine Abdominal Exam Present: soft, normoactive bowel sounds. Absent: tenderness - *Routine Extremities Exam Absent: cyanosis, clubbing, edema - *Routine Skin Exam Present: warm. Absent: rash - *Routine Neurological Exam Present: alert, oriented X3 Assessment and Plan (1) Atrial fibrillation with rapid ventricular response Status: Acute Category: Medical Code(s): I48.91 - Unspecified atrial fibrillation (2) Aortic valve prosthesis present Status: Acute Category: Surgical Code(s): Z95.2 - Presence of prosthetic heart valve (3) Syncope Status: Acute Category: Medical Code(s): R55 - Syncope and collapse (4) Hyperthyroidism Status: Acute Category: Medical Code(s): E05.90 - Thyrotoxicosis, unspecified without thyrotoxic crisis or storm (5) COPD (chronic obstructive pulmonary disease) Status: Chronic Category: Medical Code(s): J44.9 - Chronic obstructive pulmonary disease, unspecified (6) Coronary artery disease Status: Chronic Category: Medical Code(s): I25.10 - Atherosclerotic heart disease of belkofski coronary artery without angina pectoris (7) History of prosthetic aortic valve Status: Acute Category: Surgical Code(s): Z95.2 - Presence of prosthetic heart valve - Assessment and plan all Dx Assessment and Plan for all problems:: Patient was started on methimazole yesterday for her hyperthyroidism. Cardiology to follow today.
--- NOTE | 2021-02-09 09:08 | HMH.PNCARD ---
Subjective Date: 02/09/21 Time: 09:08 Principal diagnosis: Hyperthyroidism, A. fib with RVR Interval history: 70-year-old white female in bed appears tired but is in no acute distress. She denies chest pain, pressure or tightness. Patient was intolerant of the esmolol IV due to multiple side effects therefore it was discontinued and patient was started on Cardizem IV. She was also started on methimazole yesterday and the combination has resulted in improvement in her rate today. Hematuria noted in the Stone catheter likely due to irritation from placement of the Stone catheter. Patient is on Xarelto. Echocardiogram results: 1. Biatrial enlargement, normal left ventricular size, mild concentric left ventricular hypertrophy, visually estimated ejection fraction 55%, there is abnormal septal motion. Diastolic parameters are inconclusive. 2. Mildly enlarged right ventricle with normal contractility. 3. Bioprosthetic aortic valve with mean gradient across valve is 24 mmHg, there is no aortic insufficiency. 4. Moderate mitral and tricuspid regurgitation. Calculated right ventricular systolic pressure 42 mmHg 5. No significant pericardial effusion noted, inferior vena cava is normal size with normal inspiratory collapse. Electronically signed by : Akbar Dougherty, 02/08/2021 15:50:46 Exam Vital signs and Labs for Last 24 Hours: Temp Pulse Resp BP Pulse Ox 98.4 F 96 H 12 108/71 L 100 02/09/21 04:00 02/09/21 08:00 02/09/21 06:00 02/09/21 06:00 02/09/21 06:00 Laboratory Results - last 24 hr 02/08/21 06:10: Free T4 2.55 H I & O for Last 24 hours: Intake & Output 02/06/21 02/07/21 02/08/21 02/09/21 11:59 11:59 11:59 11:59 Intake Total 480 / 480 2359 / 2359 Output Total 1800 / 1800 850 / 850 Balance -1320 / -1320 1509 / 1509 Weight 181 lb 2 oz 181 lb 2.003 oz - Constitutional no acute distress - *Routine Respiratory Exam Present: CTA bilaterally - *Routine Cardiovascular Exam Present: RRR, murmur Progress Note: A&P (1) Atrial fibrillation with rapid ventricular response Status: Acute (2) Aortic valve prosthesis present Status: Acute (3) Syncope Status: Acute (4) Hyperthyroidism Status: Acute (5) COPD (chronic obstructive pulmonary disease) Status: Chronic (6) Coronary artery disease Status: Chronic (7) History of prosthetic aortic valve Status: Acute Assessment and Plan for All Diagnoses:: 1. A. fib with RVR likely secondary to hyperthyroidism. Will start p.o. metoprolol tartrate 25 mg BID and p.o. Cardizem 240 mg daily and try to get the patient off the IV Cardizem later today. She is is on Xarelto therapy for antithrombotic prophylaxis. Will hold attempt at restoring NSR until hyperthyroidism is adequately controlled. 2. Hyperthyroidism, on methimazole therapy. 3. History of aortic valve replacement, echocardiogram yesterday shows that is functioning appropriately. 4. Moderate mitral regurgitation with coordinating murmur noted on exam.
--- NOTE | 2021-02-09 09:15 | PC.NURSE ---
Dr. Sheikh and Serafin Bedoya PA @ [facility]. Updated them regarding hematuria noted in alvarez catheter. Received new order to flush catheter. Hematuria may be secondary to extreme agitation/restlessness last night and acute trauma. Flushed catheter. Flush returned in bag. No clots noted.
[2021-02-09 11:23] LABS: Thyroid Peroxidase Antibodies 47 IU/mL (0-34); Triiodothyronine (T3) Free 6.5 pg/mL (2.0-4.4)
--- NOTE | 2021-02-09 13:52 | PC.NURSE ---
received call from pharmacy (Kailyn Garcia) to discontinue Cardizem gtt per Kailyn CASTILLO. Informed him that pt continues in uncontrolled Afib with rate 90-120. Kailyn Garcia reports that Kailyn Bedoya is aware and to still discontinue Cardizem gtt.
--- NOTE | 2021-02-09 14:04 | PC.NURSE ---
pt's is upset and wants pt transferred to [facility] in [place]. He reports that pt's PCP and hardware developer (Dr. Michelle) are both @ [facility]. He also reports that he contacted Dr. Michelle's office to have pt transferred. Education provided on transfer process and that pt is not needing a higher level of care @ this time. He is upset that he has not seen Dr. Sheikh during rounds but doesn't get to the [facility] until early afternoon. Education provided on thyroid levels, Afib, and medications for both. Called Dr. Sheikh's [place] office and spoke to Harshal. Updated her regarding 's concerns. Harshal will update Dr. Sheikh and call me back with a plan.
[2021-02-10] VITALS (15 sets, daily range): BP systolic 109–134; BP diastolic 61–89; PULSE 69–100; RESP 16–22; TEMP 36.6–36.9; O2SAT 92–98; BMI 30.2
--- NOTE | 2021-02-10 00:26 | PC.NURSE ---
RA SATS WERE 87% RETURNED PT TO 2L
--- NOTE | 2021-02-10 05:38 | PC.NURSE ---
shift summary patient has remained alert, oriented, calm without muscle hyperactivity. patient rested well on 2l nc with sats sustaining greater than 92%. expiratory wheezes scattered throughout at times. marketing operations associate has shown afib with rate 60 to 90s. has denied pain, nausea, vomiting shortness of air. alvarez draining to gravity, small clots present at times, urine yellow in color to dark rust color at times.
--- NOTE | 2021-02-10 08:48 | HMH.ACPN2 ---
Internal Medicine - PN: Subj *Date: 02/10/21 *Time: 08:48 Interval history: Patient states she feels about the same today. Her shortness of breath is better but she still gets dizzy with any movement. She has not been out of bed. She did sleep well last night and was able to eat breakfast this morning. Exam Vital signs and Labs for Last 24 Hours: Temp Pulse Resp BP Pulse Ox 97.9 F 87 16 112/71 92 L 02/10/21 08:00 02/10/21 08:00 02/10/21 08:00 02/10/21 08:00 02/10/21 08:00 Laboratory Results - last 24 hr 02/08/21 06:10: Thyroid Peroxidase Ab 47 H 02/08/21 06:10: Free T3 6.5 H I & O for Last 24 hours: Intake & Output 02/07/21 02/08/21 02/09/21 02/10/21 11:59 11:59 11:59 11:59 Intake Total 480 / 480 2599 / 2599 2408 / 2408 Output Total 1800 / 1800 950 / 950 300 / 300 Balance -1320 / -1320 1649 / 1649 2108 / 2108 Weight 181 lb 2 oz 181 lb 2.003 oz 181 lb 2.003 oz - Constitutional no acute distress - *Routine Respiratory Exam Present: wheezes - *Routine Cardiovascular Exam Present: irregularly irregular (Rate in the 90s) - *Routine Abdominal Exam Present: soft, normoactive bowel sounds. Absent: tenderness - *Routine Extremities Exam Absent: cyanosis, clubbing, edema - *Routine Skin Exam Present: warm. Absent: rash - *Routine Neurological Exam Present: alert, oriented X3 Assessment and Plan (1) Atrial fibrillation with rapid ventricular response Status: Acute Category: Medical Code(s): I48.91 - Unspecified atrial fibrillation (2) Aortic valve prosthesis present Status: Acute Category: Surgical Code(s): Z95.2 - Presence of prosthetic heart valve (3) Syncope Status: Acute Category: Medical Code(s): R55 - Syncope and collapse (4) Hyperthyroidism Status: Acute Category: Medical Code(s): E05.90 - Thyrotoxicosis, unspecified without thyrotoxic crisis or storm (5) COPD (chronic obstructive pulmonary disease) Status: Chronic Category: Medical Code(s): J44.9 - Chronic obstructive pulmonary disease, unspecified (6) Coronary artery disease Status: Chronic Category: Medical Code(s): I25.10 - Atherosclerotic heart disease of grindstone coronary artery without angina pectoris (7) History of prosthetic aortic valve Status: Acute Category: Surgical Code(s): Z95.2 - Presence of prosthetic heart valve - Assessment and plan all Dx Assessment and Plan for all problems:: Cardiology saw the patient yesterday. They prefer to control her heart rate with a beta-nathaly, but felt she may need to be continued on low-dose Cardizem if she was unable to tolerate a higher dose of metoprolol. They felt she would need to wait at least a week before considering cardioversion and continue on Xarelto. They started her on metoprolol tartrate 25 mg twice daily and p.o. Cardizem 240 mg daily. Will discuss further care with Dr. Sheikh.
--- NOTE | 2021-02-10 16:14 | PC.NURSE ---
Pt is A&O x4. Pt was up to the chair today. Pt has tolerated 2 L O2 nc. Stats above 90% throughout shift. Expiratory wheezes and fine crackles noted on auscultation. No complaints of pain. Stone catheter in place draining to gravity. Urine is reddish/brown in color. Pts is currently in room. Will continue to monitor.
--- NOTE | 2021-02-10 23:37 | PC.NURSE ---
RA SATS WERE 89% RETURNED PT BACK TO 2L NC
[2021-02-11] VITALS (16 sets, daily range): BP systolic 93–145; BP diastolic 53–77; PULSE 57–110; RESP 16–20; TEMP 36.6–36.9; O2SAT 91–97; BMI 31.1
--- NOTE | 2021-02-11 05:10 | PC.NURSE ---
shift summary patient has been alert,calm and oriented. manager cardiac cath has shown afib 56-120 with activity. breath sounds intermittent wheezing, sats sustained greater than 92% on 2 l nc. alvarez to gravity draining simone colored urine.
--- NOTE | 2021-02-11 18:45 | PC.NURSE ---
No acute changes. Pt up to chair x1, tolerated well. Assisted w/ shower today. Remains on 2 L O2 per nasal cannula, no s/s of reps distress. Stone cath to drain @ bedside. Call niyah w/in reach.
[2021-02-12] VITALS (9 sets, daily range): BP systolic 112–138; BP diastolic 65–75; PULSE 60–105; RESP 18–22; TEMP 36.4–36.9; O2SAT 92–98; BMI 31.1
--- NOTE | 2021-02-12 00:13 | PC.NURSE ---
RA SATS WERE 92% RETURNED BACK TO 2L NC
--- NOTE | 2021-02-12 05:38 | PC.NURSE ---
shift summary. patient has rested throughout shift. breath sound diminished in bases with occasional expiratory wheezes. remained mid 90s on 2 l nc. secured entrance monitor has shown low 100s until pm medications given then hr stayed 60s to 80s. alvarez to gravity draining clear, yellow urine.
--- NOTE | 2021-02-12 08:42 | HMH.ACPN2 ---
Internal Medicine - PN: Subj *Date: 02/12/21 *Time: 08:42 Interval history: Patient would like to go home today. She denies chest pain and shortness of breath. She has been out of bed and did sit in the chair for a while yesterday without difficulty. She is eating as usual. She did not sleep well last night due to noise in another room. Exam Vital signs and Labs for Last 24 Hours: Temp Pulse Resp BP Pulse Ox 98.4 F 85 18 121/71 96 02/12/21 04:00 02/12/21 06:00 02/12/21 06:00 02/12/21 06:00 02/12/21 06:00 I & O for Last 24 hours: Intake & Output 02/09/21 02/10/21 02/11/21 02/12/21 11:59 11:59 11:59 11:59 Intake Total 2599 / 2599 2408 / 2408 2253 / 2253 360 / 360 Output Total 950 / 950 300 / 300 1300 / 1300 725 / 725 Balance 1649 / 1649 2108 / 2108 953 / 953 -365 / -365 Weight 181 lb 2.003 oz 181 lb 2.003 oz 186 lb 14.103 oz 186 lb 14.103 oz - Constitutional no acute distress - *Routine Respiratory Exam Present: CTA bilaterally (Anteriorly and posteriorly) - *Routine Cardiovascular Exam Present: RRR, murmur - *Routine Abdominal Exam Present: soft, normoactive bowel sounds. Absent: tenderness - *Routine Extremities Exam Absent: edema, calf tenderness - *Routine Neurological Exam Present: alert, oriented X3 Assessment and Plan (1) Atrial fibrillation with rapid ventricular response Status: Acute Category: Medical Code(s): I48.91 - Unspecified atrial fibrillation (2) Aortic valve prosthesis present Status: Acute Category: Surgical Code(s): Z95.2 - Presence of prosthetic heart valve (3) Syncope Status: Acute Category: Medical Code(s): R55 - Syncope and collapse (4) Hyperthyroidism Status: Acute Category: Medical Code(s): E05.90 - Thyrotoxicosis, unspecified without thyrotoxic crisis or storm (5) COPD (chronic obstructive pulmonary disease) Status: Chronic Category: Medical Code(s): J44.9 - Chronic obstructive pulmonary disease, unspecified (6) Coronary artery disease Status: Chronic Category: Medical Code(s): I25.10 - Atherosclerotic heart disease of [place] coronary artery without angina pectoris (7) History of prosthetic aortic valve Status: Acute Category: Surgical Code(s): Z95.2 - Presence of prosthetic heart valve - Assessment and plan all Dx Assessment and Plan for all problems:: Pulmonology to see.
--- NOTE | 2021-02-12 11:31 | HMH.PULMCON ---
*Admission Date: 02/07/21 *Reason for consult:: Respiratory distress *History of present illness: is a 70-year-old female never smoker, personal history and family history of asthma using nebulizers on a scheduled basis presented to the hospital with dizziness and presyncopal episodes respiratory's and pulmonary was called for further management. [facility] History Medical History: Reports:: Congestive Heart Failure, Chronic Obstructive Pulmonary Disease (COPD), Coronary Artery Disease, Gastroesophageal Reflux Disease(GERD) Denies:: Cancer, Diabetes Mellitus Type 1, Diabetes Mellitus Type 2, MRSA *Have you ever received a pneumonia vaccine?: Yes *Have you received a flu vaccine this season?: Yes Laterality Cases: Bilateral: Total Knee Replacement Other Surgeries: Yes: CABG, Cardiac Catheterization, Cholecystectomy, Colonoscopy, Tubal Ligation Amputation: No Fractures: No - *Social History Last grade of school completed: Advanced degree Smoking Status: Never smoker Alcohol Intake: never *Occupational Status:: retired Housing: house Household Members: spouse *Travel in the last 8 weeks: None Family Hx:: Heart Attack ROS - Cons Denies body ache(s), Denies chills, Denies fever(s) - Card Reports shortness of breath with activity - Resp Respiratory: Denies chest congestion, Denies cough, Denies non-productive cough, Reports dyspnea on exertion, Denies excessive phlegm production, Denies coughing up blood, Denies pain on inspiration, Denies pain with cough, Denies cough with sputum production, Denies pain with breathing - GI Gastrointestingal: Denies: abdominal pain Meds Home Medications Medication Instructions Recorded Confirmed Type Aspirin [Aspirin 81mg chewable 81 mg PO HS 02/07/21 02/07/21 History tab] Budesonide 1 inh INHALATION DAILY 02/07/21 02/07/21 History Furosemide [Lasix 40mg tablet] 40 mg PO Q48H 02/07/21 02/08/21 History Ipratropium/Albuterol Sulfate 3 ml IH QIDP PRN 02/07/21 02/08/21 History [Duoneb 3mL neb] Montelukast Sodium [Singulair] 5 mg PO HS 02/07/21 02/07/21 History Pantoprazole Sodium 40 mg PO DAILY 02/07/21 02/07/21 History Revefenacin [Yupelri] 1 neb INHALATION DAILY 02/07/21 02/07/21 History Trazodone HCl 150 mg PO HS 02/07/21 02/07/21 History Venlafaxine HCl [Venlafaxine HCl 150 mg PO DAILY 02/07/21 02/07/21 History ER] Furosemide [Furosemide 40MG tAB*] 80 mg PO Q48H 02/08/21 02/08/21 History predniSONE [Prednisone 20mg 20 mg PO DAILY #30 tab 02/12/21 Rx Tab] Allergies Allergy/AdvReac Type Severity Reaction Status Date / Time No Known Allergies Allergy Verified 02/07/21 12:18 Exam - Constitutional Constitutional:: Present: no acute distress, comfortable - HENMT Exam HENMT: Present: normocephalic - Eye Exam Eyes:: Present: normal appearance both eyes and related structures - Neck Exam Neck:: Present: normal visual inspection - Respiratory Exam Respiratory:: Present: able to speak in complete sentences, lungs clear, normal breath sounds, no respiratory distress - Cardiovascular Exam Cardiac:: Present: S1, S2 - GI Exam GI:: Present: soft - Skin Exam Skin: Present: warm, no rash - Neurological Exam Neurological: Present: alert, awake, normal cognition - Extremities Exam Extremities: Present: no cyanosis, no clubbing Internal Medicine - CN: Reslt - Labs CBC & Chem 7: 02/08/21 06:10 02/08/21 06:10 Assessment and Plan (1) Atrial fibrillation with rapid ventricular response Status: Acute Category: Medical Code(s): I48.91 - Unspecified atrial fibrillation (2) Aortic valve prosthesis present Status: Acute Category: Surgical Code(s): Z95.2 - Presence of prosthetic heart valve (3) Syncope Status: Acute Category: Medical Code(s): R55 - Syncope and collapse (4) Hyperthyroidism Status: Acute Category: Medical Code(s): E05.90 - Thyrotoxicosis, unspecified without thyrotoxic crisis or storm (
--- NOTE | 2021-02-12 11:47 | HMH.PNCARD ---
Subjective Date: 02/12/21 Time: 10:00 Principal diagnosis: Hyperthyroidism, A. fib with RVR Interval history: This is a 70-year-old white female who was admitted to the hospital with hyperthyroidism and atrial fibrillation with RVR. She was initially treated with esmolol IV but due to multiple side effects this medication was discontinued and she was started on a diltiazem drip. The patient is now in sinus rhythm on oral metoprolol and diltiazem. She is tolerating these well. She denies any chest pain or pressure. She denies any shortness of breath or edema. She denies any fever, chills, nausea, vomiting, diarrhea, PND or orthopnea. Exam Vital signs and Labs for Last 24 Hours: Temp Pulse Resp BP Pulse Ox 97.6 F 88 22 123/65 98 02/12/21 08:00 02/12/21 09:35 02/12/21 08:00 02/12/21 08:00 02/12/21 09:35 I & O for Last 24 hours: Intake & Output 02/09/21 02/10/21 02/11/21 02/12/21 23:59 23:59 23:59 23:59 Intake Total 3023 / 3143 2417 / 2417 1303 / 1423 840 / 840 Output Total 750 / 950 600 / 600 1275 / 1625 550 / 550 Balance 2273 / 2193 1817 / 1817 28 / -202 290 / 290 Weight 181 lb 2.003 oz 181 lb 2.003 oz 186 lb 14.103 oz 186 lb 14.103 oz Narrative: Telemetry strip is sinus rhythm with a rate of 87. - Constitutional no acute distress, obese - *Routine HEENT Exam Head: Present: normocephalic, atraumatic Eye: Present: EOMI, PERRL ENT: Present: mucous membranes moist - *Routine Neck Exam Present: supple, full ROM, normal carotid upstroke. Absent: JVD, carotid bruit, lymphadenopathy - *Routine Respiratory Exam Present: CTA bilaterally - *Routine Cardiovascular Exam Present: RRR, Normal S1, Normal S2, murmur - *Routine Abdominal Exam Present: soft, normoactive bowel sounds. Absent: tenderness, distended - *Routine Extremities Exam Present: full ROM, pulses intact, normal capillary refill. Absent: cyanosis, clubbing, edema - *Routine Skin Exam Present: intact, warm. Absent: erythema, rash - *Routine Neurological Exam Present: alert, oriented X3, CN II-XII intact. Absent: sensory deficit, motor deficit Progress Note: A&P (1) Atrial fibrillation with rapid ventricular response Status: Acute (2) Aortic valve prosthesis present Status: Acute (3) Syncope Status: Acute (4) Hyperthyroidism Status: Acute (5) COPD (chronic obstructive pulmonary disease) Status: Chronic (6) Coronary artery disease Status: Chronic (7) History of prosthetic aortic valve Status: Acute Assessment and Plan for All Diagnoses:: Plan: 1. Patient was admitted to the hospital with atrial fibrillation with RVR. She has now converted to sinus rhythm. The patient will need to continue metoprolol 25 mg p.o. twice daily and diltiazem ER 240 mg daily for rate control. 2. She is on long-term anticoagulation with Xarelto. She denies any bleeding. The patient is educated on the risks and benefits of oral anticoagulation and signs of bleeding and to call our office immediately. The patient verbalizes understanding. 3. She denies any chest pain or pressure. No plans for invasive cardiac testing. 4. Her blood pressures well controlled. 5. Her LDL goal is less than 100. 6. The patient does have a history of aortic valve replacement. This appears to be well functioning on recent echocardiogram. She does have moderate MR with a murmur noted. This is stable. 7. No further recommendations at this time from a cardiac standpoint. The patient is stable for discharge home today from a cardiac standpoint. The patient is to follow-up in 1 week on an outpatient basis. Thank you for the opportunity to help participate in the care of this patient. All recommendations and orders are per Dr. Dooley.
--- NOTE | 2021-02-12 14:31 | PC.NURSE ---
linda levi sent patient prescriptions to her pharmacy. patient educated on what she needed to take after picking them up. voiced understanding
--- NOTE | 2021-02-15 16:27 | HMH.DCSUM ---
General - General Admission date:: 02/07/21 Discharge date: 02/12/21 HPI HPI: 70yo F brought to the emergency department by ambulance secondary to multiple syncopal events. Patient reports she is unable to sit up without passing out. This just began this morning. She denies any previous episode. She denies any chest pain, shortness of breath. She denies any nausea or vomiting. She denies any recent illness. She denies any new medications. She endorses some spinning sensation when her eyes are open and she sitting up. No history of vertigo, stroke. (above as per ER physician) The patient was evaluated in the emergency room and found to be in atrial fib with rapid ventricular response. Her HR was in the 150's. She was given IV Cardizem and immediately her heart rate slowed. She states she had one episode of atrial fib when she had open heart surgery back in 2019. She is followed by a ball sorter at [facility]. Her family physician was Dr. Galvin. He has left his practice and she is now going to be seeing a nurse practitioner. She will be admitted for monitoring on telemetry. Hospital Course Hospital Course: The patient's chest x-ray showed mild to moderate COPD and her head CT showed nothing acute. Her troponins were negative and she felt better once her heart rate decreased. She had no further syncopal episodes but was placed on telemetry. She did say that her aortic valve has been replaced and was too small. Her ball sorter felt they would have to replace it again. She was also under evaluation for hyperthyroidism by her PCP, therefore a TSH was ordered. She was anxious and short of breath, therefore she was started on oxazepam 10 mg 3 times a day. She was started on potassium supplementation as well. Her TSH returned revealing hyperthyroidism. She was started on methimazole. A thyroid ultrasound was ordered showing an 9 x 6 mm nodule on the left and radiology suggested a 12-month follow-up. An echo was also ordered which showed an EF of 55%. There was biatrial enlargement with mild left ventricular hypertrophy. The bio prosthetic aortic valve had a mean gradient across the valve of 24 mmHg. There was no aortic insufficiency. Right ventricular systolic pressure was 42 mmHg. By 02/08/2021 the patient was getting profoundly short of breath. If she sat up at all she felt she was going to pass out. She normally had breathing treatments at home and had not been getting them in the hospital. These were reordered. She was seen by cardiology and they ordered a CTA to rule out a PE. The CTA showed nothing acute. Cardiology discontinued the Cardizem drip and placed the patient on esmolol drip. They held her Lasix and potassium and gave her IV fluids. They did not want to consider cardioversion in light of her hyperthyroid state. They did start her on Xarelto 20 mg daily. She did begin feeling a little bit better. Her shortness of breath improved and she was able to eat. Cardiology started the patient on metoprolol tartrate 25 mg twice daily as well as Cardizem 240 mg daily. She continued to get dizzy with any movement. She continued to be short of breath. Pulmonology was consulted and she was started on some steroids. Pulmonology felt she should be discharged on a LAMA LABA inhaler along with duo nebs every 6 hours and she would need to follow-up with her certified pesticide applicator in [place]. The steroids seem to help her significantly. Her breathing improved and she was moving air much better with less wheezing. She had been up moving around the room and wanted to go home. She was stable to be discharged and will need to follow-up with her primary care physician in a few days. She will also need to follow-up with her ball sorter and certified pesticide applicator. Objective Vital signs: Temp Pulse Resp BP Pulse Ox 98.2 F 87 19 138/72 95 02/12/21 12:07 02/12/21 12:02/12/21 12:02/12/21 12:02/12/21
== END 2021-02-12 14:30 | disposition home or self-care (01) ==
LOC: ER 17:22 → 2ND 18:11
PROVIDERS: Physician Assistant; Admitting Provider Family Medicine; Emergency Provider Family Medicine; PCP Family Medicine; Visit Provider Family Medicine
DX: I48.0 Paroxysmal atrial fibrillation (principal); I25.10 Atherosclerotic heart disease of native coronary artery without angina pectoris; Z95.2 Presence of prosthetic heart valve; E05.90 Thyrotoxicosis, unspecified without thyrotoxic crisis or storm; J44.9 Chronic obstructive pulmonary disease, unspecified; Z95.1 Presence of aortocoronary bypass graft; Z79.899 Other long term (current) drug therapy; Z79.01 Long term (current) use of anticoagulants; I50.9 Heart failure, unspecified; R55 Syncope and collapse
CPT/HCPCS: 36415; 70450; 71045; 71275; 76536; 80048; 80053; 81001; 83880; 84436; 84439; 84443; 84479; 84481; 84484; 85025; 86376; 93005; 93306; 94640; 94760; 94761; 96374; 99283; G0378; J2405; Q9967; U0003